=== PATIENT | female | born 1975 | race Asian ===

== ENCOUNTER 2017-07-20 14:13 | Emergency (ER) | payer SELFPAY ==
[~2017-07-20] VITALS: Ht 157.5 cm; Wt 81.9 kg
[2017-07-20] MEDS ORDERED: SOD CHLORIDE 0.9% 500 ML IV STA (15:22)
[2017-07-20] MEDS ORDERED: ONDANSETRON 4 MG INJ IV STA (15:26)
[2017-07-20] MEDS ORDERED: LABETALOL HCL 20MG INJ IV ONE (15:30)
[2017-07-20] MEDS ORDERED: ACETAMINOPHEN 325 MG TAB PO ONE (15:30)
--- NOTE | 2017-07-20 15:48 | RADRPT ---
PROCEDURE: XR Chest AP portable CLINICAL INDICATION: Chest pain TECHNIQUE: An AP portable radiograph of the chest was submitted. COMPARISON: None. FINDINGS: Support Hardware: None Cardiovascular: The cardiovascular silhouette appears unremarkable. Lung Carney: The lung carney appear clear with no nodule, alveolar infiltrate, or interstitial promi nence evident. Pleural Spaces: No pneumothorax or pleural effusion is identified. Osseous Structures: The osseous structures appear intact. Soft Tissues: The soft tissues appear generous. The right hemidiaphragm is moderately elevated. IMPRESSION: 1. Moderate elevation of the right hemidiaphragm. 2. Otherwise, unremarkable portable chest. Physician Raisa Date Time Electronically viewed and signed by Physician Raisa on 07/20/2017 15:48 /
[2017-07-20 16:04] VITALS: BP 136/85; RESP 20
[2017-07-20] MEDS ORDERED: CEFTRIAXONE 1 GM/50 ML (PMX) 50 ML IVPB ONE (17:00)
[2017-07-20 17:04] VITALS: Ht 157.5 cm; Wt 81.9 kg
[2017-07-20] MEDS ORDERED: ONDA4TAB11 PO (17:19)
[2017-07-20] MEDS ORDERED: CIPR500T4 PO (17:19)
--- NOTE | 2017-07-20 17:30 | ERD ---
ER Documentation Chief Complaint Chief Complaint NEW ONSET HTN VISITING FROM [facility] This 42-year-old female presents for lightheadedness and mild headache that began today. She checked her blood pressure was high. She has a history of hypertension and takes amlodipine 5 mg per day. Today however she noticed that it was much higher. She states that she feels tired if she has been sightseeing per days with her family at [facility] tourist attractions. Has no neuro deficits but does have nausea. ROS All systems reviewed and are negative except as per history of present illness. Medications Home Meds Active Scripts Ondansetron (Zofran Odt) 4 Mg Tab.rapdis, 4 MG PO Q6, #10 Prov:VLADIMIR COBB DO 07/20/17 Ciprofloxacin Hcl* (Ciprofloxacin Hcl*) 500 Mg Tablet, 500 MG PO BID, #10 TAB Prov:VLADIMIR COBB DO 07/20/17 Allergies Allergies: Coded Allergies: No Known Allergy (Unverified , 07/20/17) PMhx/Soc History of Surgery: No Anesthesia Reaction: No Hx Neurological Disorder: No Hx Respiratory Disorders: No Hx Cardiac Disorders: Yes (HTN) Hx Psychiatric Problems: No Hx Miscellaneous Medical Probl: No Hx Alcohol Use: Yes (social) Hx Substance Use: No Hx Tobacco Use: No Smoking Status: Never smoker Physical Exam Vitals Vital Signs Date Time Temp Pulse Resp B/P Pulse Ox O2 Delivery O2 Flow Rate FiO2 07/20/17 16:04 20 136/85 99 Room Air 07/20/17 14:17 98.0 78 18 163/102 99 Physical Exam Const: [] L distress, appears somewhat uncomfortable Head: Atraumatic Eyes: Normal Conjunctiva ENT: Normal External Ears, Nose and Mouth. Neck: Full range of motion..~ No meningismus. Resp: Clear to auscultation bilaterally Cardio: Regular rate and rhythm, no murmurs Abd: Soft, non tender, non distended. Normal bowel sounds Skin: No petechiae or rashes Back: No midline or flank tenderness Ext: No cyanosis, or edema Neur: Awake and alert Psych: Normal Mood and Affect Result Diagram: 07/20/17 1520 07/20/17 1520 Results 24 hrs Laboratory Tests Test 07/20/17 15:20 White Blood Count 9.710^3/ul Red Blood Count 5.5810^6/ul Hemoglobin 14.8g/dl Hematocrit 46.6% Mean Corpuscular Volume 83.5fl Mean Corpuscular Hemoglobin 26.5pg Mean Corpuscular Hemoglobin Concent 31.8g/dl Red Cell Distribution Width 14.2% Platelet Count 18646^3/UL Mean Platelet Volume 9.7fl Neutrophils % 64.6% Lymphocytes % 23.9% Monocytes % 6.6% Eosinophils % 3.8% Basophils % 0.5% Nucleated Red Blood Cells % 0.0/100WBC Neutrophils # 6.310^3/ul Lymphocytes # 2.310^3/ul Monocytes # 0.610^3/ul Eosinophils # 0.410^3/ul Basophils # 0.110^3/ul Nucleated Red Blood Cells # 0.010^3/ul Urine Color RED Urine Clarity CLOUDY Urine pH 6.0 Urine Specific Mather 1.016 Urine Ketones NEGATIVEmg/dL Urine Nitrite NEGATIVEmg/dL Urine Bilirubin NEGATIVEmg/dL Urine Urobilinogen NEGATIVEmg/dL Urine Leukocyte Esterase TRACELeu/ul Urine Microscopic RBC > 182/HPF Urine Microscopic WBC 57/HPF Urine Squamous Epithelial Cells FEW/HPF Urine Bacteria FEW/HPF Urine Hemoglobin 3+mg/dL Urine Glucose NEGATIVEmg/dL Urine Total Protein 1+mg/dl Sodium Level 141mmol/L Potassium Level 4.0mmol/L Chloride Level 103mmol/L Carbon Dioxide Level 28mmol/L Anion Gap 14 Blood Urea Nitrogen 17mg/dl Creatinine 0.74mg/dl Glucose Level 109mg/dl Calcium Level 9.2mg/dl Troponin I < 0.012ng/ml B-Type Natriuretic Peptide < 11PG/ML Current Medications Medications (Trade) Dose Ordered Sig/Fantasma Route PRN Reason Start Time Stop Time Status Last Admin Dose Admin Sodium Chloride (NS) 500 ml @ 500 mls/hr Q1H STAT IV 07/20/17 15:22 07/20/17 16:21 DC 07/20/17 15:51 Labetalol HCl (Labetalol) 20 mg ONCE ONCE IV 07/20/17 15:30 07/20/17 15:31 DC 07/20/17 15:50 Acetaminophen (Tylenol Tab) 650 mg ONCE ONCE PO 07/20/17 15:30 07/20/17 15:31 DC 07/20/17 15:44 Ondansetron HCl 4 mg 4 mg ONCE STAT IV 07/20/17 15:26 07/20/17 15:27 DC 07/20/17 15:44 Ceftriaxone Sodium (Rocephin) 50 ml @ 100 mls/hr ONCE ONCE IVPB 07/20/17 17:00 07/20/17 17:29 07/20/17 17:11 Procedures/MDM Hypertensive urgency likely an exacerbation of her baseline hypertension secondary to acute urinary tract infection. She was given labetalol in the emergency room as well as a Tylenol which resolved her headache. She is also given Zofran for nausea. After these medication she was basically asymptomatic and she had a liter of normal saline as well. Do not think that she has an increase in her baseline hypertension except due to acute infection. I will discharge her have her stay on her amlodipine 5 mg tablet and double it if blood pressure becomes significant hypertensive. She is given a gram of Rocephin for this complicated UTI complicating her hypertension. Discharging her with Zofran and ciprofloxacin for 5 days. EKG interpretation: Normal sinus rhythm rate of 76, normal axis, no ST or T- wave changes concerning for acute ischemia air sampling and monitoring interpretation: Normal sinus rhythm without arrhythmia. air sampling and monitoring interpretation: I see no acute process, no widened mediastinum, no pulmonary edema, no pneumothorax, no fractures Departure Diagnosis: Primary Impression: Urinary tract infection Additional Impression: Hypertensive urgency Condition: Stable Patient Instructions: Understanding Urinary Tract Infections (UTIs) Additional Instructions: Call your primary care doctor TOMORROW for an appointment during the next 2-3 days.See the doctor sooner or return here if your condition worsens before your appointment time. VLADIMIR COBB DO Jul 20, 2017 17:29
== END 2017-07-20 17:34 | disposition home or self-care (01) ==
LOC: E/R 14:13
DX: N39.0 Urinary tract infection, site not specified (principal); I16.0 Hypertensive urgency; I10 Essential (primary) hypertension; R40.2142 Coma scale, eyes open, spontaneous, at arrival to emergency department; R40.2252 Coma scale, best verbal response, oriented, at arrival to emergency department; R40.2362 Coma scale, best motor response, obeys commands, at arrival to emergency department
CPT/HCPCS: 36415; 71010; 80048; 81001; 83880; 84484; 85025; 93005; 96374; 96375; 99285; J0696; J2405; J7040